=== PATIENT | male | born 1990 | race Caucasian/White ===

== ENCOUNTER 2016-09-09 14:19 | Emergency (ER) | payer OTHER ==
[~2016-09-09] VITALS: Ht 172.7 cm; Wt 73.3 kg
[2016-09-09] MEDS ORDERED: AUGM875T28 PO (14:34)
[2016-09-09] MEDS ORDERED: PERC10TA26 PO (14:34)
[2016-09-09 17:01] VITALS: BP 112/67
== END 2016-09-09 17:06 | disposition home or self-care (01) ==
LOC: M ED 14:19
DX: L02.211 Cutaneous abscess of abdominal wall (principal)